=== PATIENT | female | born 1935 | race Caucasian/White ===

== ENCOUNTER 2017-04-08 16:49 | Emergency (ER) | payer MEDICARE, MEDICAID ==
[~2017-04-08] VITALS: Ht 162.6 cm; Wt 53.2 kg
[~2017-04-08 16:49] MED LIST: ASPI-611 PO; CARV-50 PO; CLOP75TA35 PO; DILT360C29 PO; LOVA10TA56 PO; OMEP40CA37 PO; PARO10TA4 PO
[2017-04-08 17:00] VITALS: BP 171/76
[2017-04-08 17:38] LABS: BASOPHILS # (AUTO) 0.1 X10'3 (0-0.2); BASOPHILS % (AUTO) 0.8 % (0-1); EOSINOPHILS # (AUTO) 0.4 X10'3 (0-0.9); EOSINOPHILS % (AUTO) 4.4 % (0-6); HEMATOCRIT 36.8 % (35.0-45.0); HEMOGLOBIN 11.8 g/dl (12.0-16.0); LYMPHOCYTES # (AUTO) 1.6 X10'3 (1.1-4.8); LYMPHOCYTES % (AUTO) 17.9 % (21-51); MEAN CORPUSCULAR HEMOGLOBIN 25.2 PG (27.0-31.0); MEAN CORPUSCULAR VOLUME 78.8 FL (78-98); MEAN PLATELET VOLUME 6.6 FL (7.4-10.4); MONOCYTES # (AUTO) 0.6 X10'3 (0-0.9); MONOCYTES % (AUTO) 6.8 % (2-12); NEUTROPHILS # (AUTO) 6.4 X10'3 (1.8-7.7); NEUTROPHILS % (AUTO) 70.1 % (42-75); PLATELET COUNT 225 X10'3 (140-440); RED BLOOD COUNT 4.66 X10'6 (4.20-5.60); RED CELL DISTRIBUTION WIDTH 17.6 % (11.5-14.5); WHITE BLOOD COUNT 9.1 X10'3 (4.5-11.0)
[2017-04-08 17:47] LABS: PROTHROMBIN TIME 10.3 SECONDS (9.0-12.0)
[2017-04-08 17:55] LABS: ALANINE AMINOTRANSFERASE 15 U/L (12-78); ALBUMIN 4.2 G/DL (3.4-5.0); ALBUMIN/GLOBULIN RATIO 1.1 (1.1-1.5); ALKALINE PHOSPHATASE 96 IU/L (46-116); ANION GAP 11 (8-16); ASPARTATE AMINO TRANSFERASE 16 U/L (10-37); BILIRUBIN,TOTAL 0.5 MG/DL (0.1-1.0); BLOOD UREA NITROGEN 9 MG/DL (7-18); BUN/CREATININE RATIO 13.4 (6.6-38.0); CHLORIDE 104 MMOL/L (99-107); CREATININE 0.67 MG/DL (0.40-0.90); GLUCOSE 91 MG/DL (70-104); POTASSIUM 3.7 MMOL/L (3.5-5.1); SODIUM 142 MMOL/L (135-145); TOTAL CARBON DIOXIDE 27.2 MMOL/L (24-32); TOTAL PROTEIN 8.2 G/DL (6.4-8.2); eGFR 84 ML/MIN
[2017-04-08] MEDS ORDERED: PARoxetine 10mg tablet PO SCH (19:05)
[2017-04-08] MEDS ORDERED: carVEDilol 3.125mg tablet PO ONE (19:05)
[2017-04-08] MEDS ORDERED: carVEDilol 3.125mg tablet PO SCH (19:05)
[2017-04-08] MEDS ORDERED: furosemide 10 MG/1 ML 10ml inj IV ONE (19:05)
[2017-04-08] MEDS ORDERED: famotidine 20mg tablet PO ONE (19:05)
[2017-04-08] MEDS ORDERED: LOVA20TA2 PO (19:07)
[2017-04-08] MEDS ORDERED: DILT360C32 PO (19:07)
[2017-04-08] MEDS ORDERED: CARV6.253 PO (19:07)
[2017-04-08] MEDS ORDERED: PARoxetine 10mg tablet PO ONE (19:10)
== END 2017-04-08 19:55 | disposition home or self-care (01) ==
LOC: ER 16:50
DX: I11.0 Hypertensive heart disease with heart failure (principal); I50.9 Heart failure, unspecified; Z98.62 Peripheral vascular angioplasty status; Z79.82 Long term (current) use of aspirin; Z88.2 Allergy status to sulfonamides; Z88.0 Allergy status to penicillin; Z79.899 Other long term (current) drug therapy
CPT/HCPCS: 36415; 80053; 83735; 83880; 84484; 85025; 85610; 93005; 96374; 99285; J1940

== ENCOUNTER 2018-10-16 08:03 | Day surgery (SDC) | payer MEDICARE, MEDICAID ==
[~2018-10-16] VITALS: Ht 162.6 cm; Wt 56.3 kg
[~2018-10-16 08:03] MED LIST changes: +CARV6.253 PO; +DILT360C32 PO; +LOVA20TA2 PO
[2018-10-16] MEDS ORDERED: LISI10TA4 PO (09:19)
[2018-10-16] MEDS ORDERED: CARV-50 PO (09:21)
[2018-10-16] MEDS ORDERED: LACTC PO (09:22)
[2018-10-16] MEDS ORDERED: LOVA20TA2 PO (09:25)
[2018-10-16 09:51] VITALS: BP 183/82
[2018-10-16 09:52] VITALS: BP 194/90
--- NOTE | 2018-10-16 10:03 | NUR ---
Ultrasound only, no fluid noted, no procedure performed. P t dc'd in stable condition with belongings.
== END 2018-10-16 10:15 | disposition home or self-care (01) ==
LOC: SSTAY O 08:03
PROVIDERS: ATTEND Radiology Diagnostic Radiology
DX: J90 Pleural effusion, not elsewhere classified (principal); Z53.8 Procedure and treatment not carried out for other reasons; I25.10 Atherosclerotic heart disease of native coronary artery without angina pectoris; I73.9 Peripheral vascular disease, unspecified; E78.5 Hyperlipidemia, unspecified; I10 Essential (primary) hypertension; Z98.890 Other specified postprocedural states; Z79.899 Other long term (current) drug therapy; Z88.2 Allergy status to sulfonamides; Z88.0 Allergy status to penicillin; Z79.82 Long term (current) use of aspirin
CPT/HCPCS: 76604